=== PATIENT | male | born 1995 | race Caucasian/White ===

== ENCOUNTER 2018-02-15 16:12 | Emergency (ER) | payer OTHER ==
[2018-02-15 16:24] VITALS: BP 137/63; PULSE 70; RESP 18; TEMP 98.4; O2SAT 100
--- NOTE | 2018-02-15 16:36 | ED PDOC ---
HPI: Back Time Seen by Provider: 02/15/18 16:22 Chief Complaint (Nursing): Back Pain Chief Complaint (Provider): Back pain History Per: Patient History/Exam Limitations: no limitations Onset/Duration Of Symptoms: Hrs (today) Current Symptoms Are (Timing): Still Present Associated Symptoms: None Additional Complaint(s): Colby Bowens is a 22 year old male, with no significant past medical history, who presents to the emergency department complaining of lower back pain after an injury at work today. Patient states a piece of metal fell on his back. He did not take any medication for pain. He denies any other injuries or medical complaints. PMD: None. Past Medical History Reviewed: Historical Data, Nursing Documentation, Vital Signs Vital Signs: Last Vital Signs Temp 98.4 F 02/15/18 16:21 Pulse 70 02/15/18 16:21 Resp 18 02/15/18 16:21 BP 137/63 02/15/18 16:21 Pulse Ox 100 02/15/18 16:21 - Medical History PMH: No Chronic Diseases - Surgical History Surgical History: No Surg Hx - Family History Family History: States: Unknown Family Hx - Social History Current smoker - smoking cessation education provided: No Alcohol: None Drugs: Denies - Home Medications Home Medications: Ambulatory Orders Medication Instructions Recorded Ibuprofen [Motrin] 600 mg PO TID PRN #30 tab 01/18/16 Cyclobenzaprine [Cyclobenzaprine 10 mg PO TID PRN #20 tab 02/15/18 HCl] Naproxen [Naprosyn] 500 mg PO BID #20 tab 02/15/18 - Allergies Allergies/Adverse Reactions: Allergies Allergy/AdvReac Type Severity Reaction Status Date / Time No Known Allergies Allergy Verified 02/15/18 16:21 Review of Systems ROS Statement: Except As Marked, All Systems Reviewed And Found Negative Musculoskeletal: Positive for: Back Pain Physical Exam - Reviewed Nursing Documentation Reviewed: Yes Vital Signs Reviewed: Yes - Physical Exam Appears: Positive for: No Acute Distress Head Exam: Positive for: ATRAUMATIC, NORMAL INSPECTION, NORMOCEPHALIC Skin: Positive for: Normal Color, Warm, Dry Eye Exam: Positive for: Normal appearance Neck: Positive for: Painless ROM Back: Positive for: Other (Tenderness and swelling to right lower lumbar region) Extremity: Positive for: Normal ROM (upper and lower extremities). Negative for : Deformity, Swelling Neurologic/Psych: Positive for: Alert, Oriented. Negative for: Motor/Sensory Deficits - ECG O2 Sat by Pulse Oximetry: 100 (RA) Pulse Ox Interpretation: Normal - Other Rad LS Spine X-ray X-Ray: Interpreted by Me, Viewed By Me X-Ray Interpretation: no fx, no dis Medical Decision Making Medical Decision Making: Time: 16:22 Initial Impression: 22 y/o male with low back pain s/p injury at work Initial Plan: --Motrin tab 600 mg PO --LS Spine AP/LAT [RAD] --Reevaluation Patient reports improvement pain after Motrin dose was given. He is aware of x- ray results. All questions answered. Patient was referred to clinic for follow- up. Scribe Attestation: Documented by Dayday Hardy, acting as a scribe for Tita Russ PA-C Provider Scribe Attestation: All medical record entries made by the Scribe were at my direction and personally dictated by me. I have reviewed the chart and agree that the record accurately reflects my personal performance of the history, physical exam, medical decision making, and the department course for this patient. I have also personally directed, reviewed, and agree with the discharge instructions and disposition. Disposition - Clinical Impression Clinical Impression: Back strain - Patient ED Disposition Is Patient to be Admitted: No Counseled Patient/Family Regarding: Studies Performed, Diagnosis, Need For Followup, Rx Given - Disposition Referrals: [facility] [Outside] Disposition: Routine/Home Disposition Time: 17:39 Condition: STABLE Additional Instructions: Take prescription meds as directed as needed for pain. Follow-up with clinic in 2-3 days. Prescriptions: Cyclobenzaprine [Cyclobenzaprine HCl] 10 mg PO TID PRN #20 tab PRN Reason: Muscle Spasm Naproxen [Naprosyn] 500 mg PO BID #20 tab Instructions: Back Exercises, Muscle Strain, Low Back Pain (DC) Forms: [employer] (Yoruba), [facility] ED School/Work Excuse Print Language: NOR[place] KOREAN
--- NOTE | 2018-02-15 17:45 | RAD ---
Date of service: 02/15/2018 PROCEDURE: Radiographs of the Lumbar Spine. HISTORY: trauma COMPARISON: No prior. FINDINGS: BONES: Normal alignment. No listhesis. No fracture. DISC SPACES: Unremarkable. OTHER FINDINGS: None. IMPRESSION: Unremarkable radiographs of the lumbar spine. Concordant results with the preliminary interpretation rendered by the emergency department physician procedure.
== END 2018-02-15 18:12 | disposition home or self-care (01) ==
LOC: H.ER 16:12
DX: S39.012A Strain of muscle, fascia and tendon of lower back, initial encounter (principal); W22.8XXA Striking against or struck by other objects, initial encounter; Y99.0 Civilian activity done for income or pay

== ENCOUNTER 2018-04-18 10:34 | Emergency (ER) | payer SELFPAY ==
--- NOTE | 2018-04-18 12:56 | CT ---
Date of service: 04/18/2018 PROCEDURE: CT HEAD WITHOUT CONTRAST. HISTORY: hit with metal pipe on back of head and neck COMPARISON: None available. TECHNIQUE: Axial computed tomography images were obtained through the head/brain without intravenous contrast. Radiation dose: Total exam DLP = 838.76 mGy-cm. This CT exam was performed using one or more of the following dose reduction techniques: Automated exposure control, adjustment of the mA and/or kV according to patient size, and/or use of iterative reconstruction technique. FINDINGS: HEMORRHAGE: No intracranial hemorrhage. BRAIN: Normal enamorado-white matter differentiation and density are appreciated throughout the cerebrum and cerebellum with the brainstem appearing unremarkable as well. There is no mass effect. There is no suspicious extra-axial fluid collection and the midline brain anatomy appears diffusely unremarkable. VENTRICLES: Unremarkable. No hydrocephalus. CALVARIUM: No destructive bony lesion or displaced fracture identified including through the skullbase. PARANASAL SINUSES: Unremarkable as visualized. No significant inflammatory changes. MASTOID AIR CELLS: Unremarkable as visualized. No inflammatory changes. OTHER FINDINGS: None. IMPRESSION: Unremarkable head CT without contrast. No acute intracranial findings or fracture identified.
[2018-04-18 13:15] LABS: BASO % 0.3 % (0.0-2.0); EOS # 0.1 K/uL (0.0-0.7); EOS % 1.2 % (0.0-4.0); HEMOGLOBIN 14.2 g/dL (12.0-18.0); LYMPH % 41.3 % (20.0-40.0); MEAN CELL VOLUME 90.4 fl (80.0-94.0); MEAN CORPUSCULAR HEMOGLOBIN 29.5 pg (27.0-31.0); MEAN CORPUSCULAR HGB CONC 32.6 g/dL (33.0-37.0); MEAN PLATELET VOLUME 10.9 fl (7.2-11.7); MONO # 0.4 K/uL (0.0-0.8); MONO % 5.7 % (0.0-10.0); NEUT # 3.8 K/uL (1.8-7.0); NEUT % 51.5 % (50.0-75.0); NRBC % 0.1 % (0.0-0.0); RBC 4.81 Mil/uL (4.40-5.90); RED CELL DISTRIBUTION WIDTH 14.2 % (11.5-14.5); WHITE BLOOD COUNT 7.3 K/uL (4.8-10.8)
--- NOTE | 2018-04-18 13:19 | ED PDOC ---
HPI: Headache Time Seen by Provider: 04/18/18 11:56 Chief Complaint (Nursing): Headache Chief Complaint (Provider): [place] and Neck Pain History Per: Patient History/Exam Limitations: no limitations Onset/Duration Of Symptoms: Days, Intermittent Episodes Current Symptoms Are (Timing): Still Present Quality: "Pain" Additional Complaint(s): 22 year old male presents to the ER for an evaluation of headache and neck pain after a lead pipe fell on him 2 days ago. 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 He states he hit his head on the floor and lost consciousness for several minutes. When he woke up, he felt dizzy and states he was seeing flashing lights that lasted for a few minutes and went away. Patient did not seek medical attention afterwards. He reports of continuous headache and neck pain with intermittent episodes of dizziness and flashing lights. Also states of having numbness and tingling in his right hand and occasionally in left foot as well as some blood in the mouth. Denies nausea, vomiting, seeing double, weakness on one side of body, speech disturbance, HTN, hyperlipidemia, diabetes or any pain medication. Past Medical History Reviewed: Historical Data, Nursing Documentation, Vital Signs Vital Signs: Last Vital Signs Temp 97.9 F 04/18/18 11:19 Pulse 72 04/18/18 11:19 Resp 16 04/18/18 11:19 BP 120/63 04/18/18 11:19 Pulse Ox 100 04/18/18 11:19 - Medical History PMH: Denies: Diabetes, HTN, Hyperlipidemia - Surgical History Surgical History: No Surg Hx - Family History Family History: States: Unknown Family Hx - Social History Current smoker - smoking cessation education provided: No Alcohol: None Drugs: Denies - Home Medications Home Medications: Ambulatory Orders Medication Instructions Recorded Ibuprofen [Motrin] 600 mg PO TID PRN #30 tab 01/18/16 Cyclobenzaprine [Cyclobenzaprine 10 mg PO TID PRN #20 tab 02/15/18 HCl] Naproxen [Naprosyn] 500 mg PO BID #20 tab 02/15/18 Cyclobenzaprine [Cyclobenzaprine 10 mg PO Q8 PRN 5 Days tab 04/18/18 HCl] Ibuprofen [Motrin Tab] 600 mg PO Q6 PRN 5 Days tab 04/18/18 - Allergies Allergies/Adverse Reactions: Allergies Allergy/AdvReac Type Severity Reaction Status Date / Time No Known Allergies Allergy Verified 02/15/18 16:21 Review of Systems ROS Statement: Except As Marked, All Systems Reviewed And Found Negative Eyes: Negative for: Vision Change ENT: Positive for: Other (some blood in mouth) Gastrointestinal: Negative for: Nausea, Vomiting Musculoskeletal: Positive for: Neck Pain Neurological: Positive for: Headache, Dizziness, Other (LOC) Physical Exam - Reviewed Nursing Documentation Reviewed: Yes Vital Signs Reviewed: Yes - Physical Exam Appears: Positive for: Non-toxic, No Acute Distress Head Exam: Positive for: ATRAUMATIC, NORMOCEPHALIC. Negative for: NORMAL INSPE CTION (mild pain on palpation on right lower skull) Skin: Positive for: Normal Color Eye Exam: Positive for: EOMI, Normal appearance, PERRL ENT: Negative for: Pharyngeal Erythema Neck: Negative for: Normal (decreased ROM of lateral rotation of neck and with extension of neck ) Cardiovascular/Chest: Positive for: Regular Rate, Rhythm. Negative for: Murmur Respiratory: Positive for: Normal Breath Sounds. Negative for: Decreased Breath Sounds, Wheezing, Respiratory Distress Back: Positive for: Normal Inspection (no cervical spine tendernes, ecchymosis, erythema deformity) Extremity: Positive for: Normal ROM (hip, knee, and foot bilateral ), Other (decreased sensation to light touch in left lateral thigh ). Negative for: Deformity (normal sensation in left lower leg, left medial thigh and right leg to light touch) Neurologic/Psych: Positive for: Alert, Oriented (x3). Negative for: Motor/Sensory Deficits - Laboratory Results Result Diagrams: 04/18/18 13:05 04/18/18 13:05 - ECG O2 Sat by Pulse Oximetry: 100 (RA) Pulse Ox Interpretation: Normal Medical Decision Making Medical Decision Making: Time: 1215 Initial Plan: Cervical Spine w/o Contrast [CT] Head w/o Contrast [CT] CMP CBC w/ Differential Flexeril 10mg Ibuprofen 600mg Reevaluation Time:1252 PROCEDURE: CT HEAD WITHOUT CONTRAST. HISTORY: hit with metal pipe on back of head and neck COMPARISON: None available. TECHNIQUE: Axial computed tomography images were obtained through the head/brain without intravenous contrast. Radiation dose: Total exam DLP = 838.76 mGy-cm. This CT exam was performed using one or more of the following dose reduction techniques: Automated exposure control, adjustment of the mA and/or kV according to patient size, and/or use of iterative reconstruction technique. FINDINGS: HEMORRHAGE: No intracranial hemorrhage. BRAIN: Normal enamorado-white matter differentiation and density are appreciated throughout the cerebrum and cerebellum with the brainstem appearing unremarkable as well. There is no mass effect. There is no suspicious extra-axial fluid collection and the midline brain anatomy appears diffusely unremarkable. VENTRICLES: Unremarkable. No hydrocephalus. CALVARIUM: No destructive bony lesion or displaced fracture identified including through the skullbase. PARANASAL SINUSES: Unremarkable as visualized. No significant inflammatory changes. MASTOID AIR CELLS: Unremarkable as visualized. No inflammatory changes. OTHER FINDINGS: None. IMPRESSION: Unremarkable head CT without contrast. No acute intracranial findings or fracture identified. Time: 1313 PROCEDURE: CT Cervical Spine without contrast HISTORY: hit with metal pipe on back of head and neck COMPARISON: None available. TECHNIQUE: Axial computed tomography images were obtained of the cervical spine without the use of intravenous contrast. Coronal and sagittal reformatted images were created and reviewed. Radiation dose: Total exam DLP = 348.08 mGy-cm. This CT exam was performed using one or more of the following dose reduction ada hniques: Automated exposure control, adjustment of the mA and/or kV according to patient size, and/or use of iterative reconstruction technique. FINDINGS: VERTEBRAE: No fracture. Normal alignment. No destructive bony lesion. The odontoid process, C1-2 articulation and craniocervical junction appear within normal limits. DISCS/SPINAL CANAL/NEURAL FORAMINA: No significant central canal or neural foraminal stenosis. Discs heights are grossly preserved. PREVERTEBRAL AND PARASPINAL SOFT TISSUES: Unremarkable. OTHER FINDINGS: None. IMPRESSION: Unremarkable CT of the cervical spine. -------- --------- Scribe Attestation: Documented by Mauli Maniar, acting as a scribe for Lucinda Thelma-Woody, PA-C Provider Scribe Attestation: All medical record entries made by the Scribe were at my direction and personally dictated by me. I have reviewed the chart and agree that the record accurately reflects my personal performance of the history, physical exam, medical decision making, and the department course for this patient. I have also personally directed, reviewed, and agree with the discharge instructions and disposition. Disposition - Clinical Impression Clinical Impression: Headache due to injury of head and neck - Patient ED Disposition Is Patient to be Admitted: No Counseled Patient/Family Regarding: Studies Performed, Diagnosis, Need For Followup, Rx Given - Disposition Referrals: [facility] [Outside] Disposition: Routine/Home Disposition Time: 14:16 Condition: IMPROVED Additional Instructions: Take Flexeril and Ibuprofen as needed for neck pain and MAS. Prescriptions: Cyclobenzaprine [Cyclobenzaprine HCl] 10 mg PO Q8 PRN 5 Days tab PRN Reason: Pain, Moderate (4-7) Ibuprofen [Motrin Tab] 600 mg PO Q6 PRN 5 Days tab PRN Reason: Pain, Moderate (4-7) Instructions: Minor Head Injury (DC) Forms: [employer] (Georgian), [facility] ED School/Work Excuse Print Language: SYRIAC
[2018-04-18 13:38] LABS: ALB/GLOB RATIO 1.4 (1.0-2.1); ALBUMIN 4.4 g/dL (3.5-5.0); ALT/SGPT 29 U/L (21-72); AST/SGOT 32 U/L (17-59); BLOOD UREA NITROGEN 20 mg/dl (9-20); CALCIUM 9.1 mg/dL (8.4-10.2); GFR NON-AFRICAN AMERICAN > 60
[2018-04-18 14:17] VITALS: BP 124/75; PULSE 76; RESP 17; TEMP 97.8
[2018-04-19 01:19] VITALS: O2SAT 100
== END 2018-04-18 14:17 | disposition home or self-care (01) ==
LOC: H.ER 10:34
DX: S09.90XA Unspecified injury of head, initial encounter (principal); W22.8XXA Striking against or struck by other objects, initial encounter; Y99.0 Civilian activity done for income or pay